=== PATIENT | female | born 1930 | race Caucasian/White ===

== ENCOUNTER → 2016-04-05 | Outpatient (CLI) | payer OTHER ==
[~2016-04-05] MED LIST: AMLODIPINE BESYL5 MG PO; AMOXICILLIN875 MG PO; CARVEDILOL6.25 MG PO; CELEBREX PO; HYDROCODON-ACE1 EAC7 PO; IBUPROFEN800 MG PO; LIPITOR PO; LIPITOR20 MG PO; MEGA BIOTIN10000 MCG PO; PANTOPRAZOLE SO40 MG PO; SPIRIVA18 MCG INH; SYNTHROID0.05 MG DOB; SYNTHROID0.05 MG PO; VICODIN 5/1 TAB 5/50 PO; VITAMIN D32000 UNIT PO; ZYRTEC10 M1 PO
--- NOTE | ~2016-04-05 | CT57 ---
[facility] A Service of [facility] & [facility] RADIOLOGY TEXT RESULTS PATIENT: JACKELIN ADAMS LOCATION: [facility] : 29 UNIT #: [id number] AGE: [address]: Aquiles Diaz MD SEX: F ORDER DR: [id number] [facility] [address] [place], [place] [address] [id number] O MR#: [id number] Acc #: [id number] NAME: JACKELIN ADAMS : 1930 SEX: F STUDY DATE/TIME: 04/05/2016 11:24 UNIT: [facility] ROOM: STUDY DESCRIPTION: CT Chest Wo Cont Attending Physician: Aquiles Diaz M.D. Ordering Physician: Aquiles Diaz M.D. Primary Care Physician: No Primary Care Physician MEDICAL IMAGING REPORT This report is preliminary unless electronic signature is present EXAM Chest CT 04/05/2016 INDICATIONS Lung cancer. Observation of malignant neoplasm. Restaging exam. Patient does report some right-side chest pain that started in December of last year. TECHNIQUE Axial noncontrast images were obtained through the chest. Multiplanar reformats were obtained. This CT exam was performed with one or more of the following radiation dose reduction techniques: automatic exposure control, adjustment of mA and/or kV according to patient size, and iterative reconstruction. COMPARISON STUDIES Comparison made with 01/10/2016. FINDINGS There is extensive atherosclerotic disease and coronary artery disease. Calcifications in the aortic valve may reflect aortic stenosis. Cardiomegaly is stable. Trace amount of pericardial fluid is also stable. The ascending aorta is stable in caliber at about 3.9 cm diameter. The descending aorta is stable at about 2.9 cm diameter. No adenopathy is seen. There is no pleural fluid. Lung windows demonstrate emphysema. 8-9 mm nodule in the left lower lobe is not significantly changed. Band-like density in the right upper lobe extending along the minor fissure is essentially stable and presumably reflects some postoperative change or radiation fibrosis. A second area of poorly defined density in the left lower lobe is also stable. An area of presumed scarring near the right apex is stable, and is also stable since an outside chest CT 04/05/2015. The 2 densities in the left lower lobe are also stable since STS. [facility] A Service of [facility] RADIOLOGY TEXT RESULTS PATIENT: JACKELIN ADAMS LOCATION: [facility] : 29 UNIT #: [id number] AGE: [address]: Aquiles Diaz MD SEX: F ORDER DR: the older outside study and are presumably benign. 2 years stability should be confirmed with imaging. There are right lateral fifth and sixth rib fractures that appear subacute. These are new since the more recent prior chest CT. There is degenerative disease in the thoracic spine. No suspicious osseous lesions are seen in the chest. Upper abdomen is remarkable for atherosclerotic disease. Tiny gallstones may be present. IMPRESSION 1. Stable appearance of the chest. Band-like area of consolidation in the right lung is unchanged. Nodular densities in both lungs are also stable. Surveillance imaging recommended. The nodules should be followed for 2 years to document their benign nature. 2. New since the 01/10/2016 exam are right lateral fifth and sixth rib fractures. These have a subacute appearance. 3. Atherosclerotic disease with stable aortic ectasia. Coronary artery disease noted as well. Dictated by... Ervin Mcgee Jr., M.D. THIS IS AN ELECTRONICALLY VERIFIED REPORT Ervin Mcgee Jr., M.D. at 04/06/2016 8:09 AM MICHELINE/maryanne TD: 04/05/2016 17:52 JOB #: [id number] MEDICAL IMAGING REPORT COPY
== END | disposition home or self-care (01) ==
LOC: CCAT 10:31
DX: C34.10 Malignant neoplasm of upper lobe, unspecified bronchus or lung (principal); J18.1 Lobar pneumonia, unspecified organism; S22.31XD Fracture of one rib, right side, subsequent encounter for fracture with routine healing; I70.0 Atherosclerosis of aorta; I25.10 Atherosclerotic heart disease of native coronary artery without angina pectoris
CPT/HCPCS: 71250

== ENCOUNTER → 2016-05-23 | Outpatient (CLI) | payer OTHER ==
--- NOTE | ~2016-05-23 | BD1 ---
[facility] A Service of [facility] & [facility] RADIOLOGY TEXT RESULTS PATIENT: JACKELIN ADAMS LOCATION: [facility] : 29 UNIT #: [id number] AGE: [address]: Millie Gates MD SEX: F ORDER DR: [id number] [facility] [address] [place], [place] [address] [id number] O MR#: [id number] Acc #: [id number] NAME: JACKELIN ADAMS : 1930 SEX: F STUDY DATE/TIME: 05/23/2016 13:01 UNIT: [facility] ROOM: STUDY DESCRIPTION: BD Dexa Bone Dens 1+ Site Attending Physician: Millie Gates M.D. Referring Physician: Millie Gates M.D. Ordering Physician: Millie Gates M.D. Primary Care Physician: Millie Gates M.D. MEDICAL IMAGING REPORT This report is preliminary unless electronic signature is present EXAM DEXA scan HISTORY Postmenopausal screening for osteoporosis FINDINGS Bone density was assessed utilizing a Logic bone densitometer. Total bone density within the lumbar spine was calculated at 1.058 g/cm sq with a T-score of 0.1. This number may be falsely elevated due to extensive sclerosis and density within the L3 vertebral body. Utilizing the isolated L1 and L2 vertebral bodies, the patient's T-score is closer to -1. Total bone density within the proximal left femur was calculated at 0.898 g/cm sq with a T-score of -0.4. Femoral neck bone density is 0.702 g/cm sq with a T-score -1.3. IMPRESSION Patient's bone density within the upper lumbar spine at the L1 and L2 levels is about 1 standard deviations below the mean and compatible with the World Health Organization criteria for osteopenia. The overall lumbar bone density may be falsely elevated due to sclerosis within the L3-4 vertebral body. Similarly there is greater than 1 standard deviation decrease in bone density within the left femoral neck, though femoral neck measurements are felt to be less specific for the overall evaluation of bone density. Overall I suspect the patient's bone density is borderline for osteopenia. Dictated by... Lalo Dinh M.D. THIS IS AN ELECTRONICALLY VERIFIED REPORT Lalo Dinh M.D. at 05/24/2016 1:58 PM JMS/to [facility]. [facility] A Service of [facility] RADIOLOGY TEXT RESULTS PATIENT: JACKELIN ADAMS LOCATION: [facility] : 29 UNIT #: [id number] AGE: [address]: Millie Gates MD SEX: F ORDER DR: TD: 05/23/2016 15:53 JOB #: [id number] MEDICAL IMAGING REPORT Page 1 of 1 COPY
== END | disposition home or self-care (01) ==
LOC: CWCC 12:42
DX: Z78.0 Asymptomatic menopausal state (principal); S22.31XA Fracture of one rib, right side, initial encounter for closed fracture; G95.89 Other specified diseases of spinal cord
CPT/HCPCS: 77080

== ENCOUNTER → 2016-08-10 | Outpatient (CLI) | payer OTHER ==
--- NOTE | ~2016-08-10 | CT57 ---
[facility] A Service of [facility] & [facility] RADIOLOGY TEXT RESULTS PATIENT: JACKELIN ADAMS LOCATION: [facility] : 29 UNIT #: [id number] AGE: [address]: Aquiles Diaz MD SEX: F ORDER DR: [id number] [facility] [address] [place], [place] [address] [id number] O MR#: [id number] Acc #: [id number] NAME: JACKELIN ADAMS : 1930 SEX: F STUDY DATE/TIME: 08/10/2016 13:14 UNIT: [facility] ROOM: STUDY DESCRIPTION: CT Chest Wo Cont Attending Physician: Aquiles Diaz M.D. Ordering Physician: Aquiles Diaz M.D. Primary Care Physician: Millie Gates M.D. MEDICAL IMAGING REPORT This report is preliminary unless electronic signature is present EXAM Chest CT, 08/10 at 13:14. INDICATIONS Lung cancer. Observation of malignant neoplasm. TECHNIQUE Axial noncontrast images were obtained through the chest. Multiplanar reformats were obtained. This CT exam was performed with one or more of the following radiation dose reduction techniques: automatic exposure control, adjustment of mA and/or kV according to patient size, and iterative reconstruction. COMPARISON Comparison is made with 04/05/2016. FINDINGS Again seen is atherosclerotic disease and coronary artery disease. Calcifications in the aortic valve may indicate aortic stenosis. There is ectasia of the ascending aorta which is stable at about 3.8 cm. Heart is enlarged. There is a small pericardial effusion which is very slightly increased over the prior study. No adenopathy by size criteria is identified. There is a moderate size hiatal hernia which is slightly larger. It contains portions of the gastric fundus. There is emphysema. Band-like scarring in the right lung is unchanged. An area of faint left lower lobe density is stable. There is a 9 mm left lower lobe nodule which is also stable. A tiny stellate density in the right upper lobe is also unchanged. There is a potential new 4 mm knot in the right lower lobe posteriorly. Chest CT followup in 3-6 months is recommended. No other new nodules are seen. There has been interval increase in callous formation in the previously demonstrated right rib fractures. No suspicious osseous lesions are identified. The upper abdomen is remarkable for atherosclerotic disease. Gallstone present as well. [facility] A Service of [facility] RADIOLOGY TEXT RESULTS PATIENT: JACKELIN ADAMS LOCATION: [facility] : 29 UNIT #: [id number] AGE: [address]: Aquiles Diaz MD SEX: F ORDER DR: IMPRESSION 1. Single potential new 4 mm right lower lobe nodule. Attention on follow-up chest CT in 3-6 months recommended. 2. The remainder of the chest CT is stable from prior. 3. Atherosclerotic disease and coronary artery disease. Dictated by... Ervin Mcgee Jr., M.D. THIS IS AN ELECTRONICALLY VERIFIED REPORT Ervin Mcgee Jr., M.D. at 08/11/2016 5:59 AM MICHELINE/sury TD: 08/10/2016 22:16 JOB #: [id number] MEDICAL IMAGING REPORT Page 1 of 1 COPY
== END | disposition home or self-care (01) ==
LOC: CCAT 12:34
DX: C34.10 Malignant neoplasm of upper lobe, unspecified bronchus or lung (principal); R91.1 Solitary pulmonary nodule; I25.10 Atherosclerotic heart disease of native coronary artery without angina pectoris
CPT/HCPCS: 71250